=== PATIENT | female | born 1985 | race Caucasian/White ===

== ENCOUNTER 2022-01-19 16:09 | Outpatient (REF) | payer MEDICAID, SELFPAY ==
--- NOTE | 2022-01-19 14:30 | PAPFT_PTH ---
PATIENT: Domitila Glynn LOC: [facility] U#:[id number] AGE/SX: 36/F ROOM: RE01/19/[address]: Dorinda Ortega : 1985 BED: DIS: 01/19/2022 SPEC #: [id number] RECD: 01/20/22 09:25 STATUS: ARI CADENA #: [id number] CHRISSY: 01/19/22 14:[address]: Dorinda Ortega DEPT: [facility] Cytology RECD BY: Ally Armendariz Tissues: 1 - CX/ENDOCX FOR PAP SMEARS Procedures: PAP THIN PREP/[facility] Screening HPV DNA PROBE Comments: [id number] (CHLAMYDIA/GC)
[2022-01-19 21:27] LABS: ALT 32 U/L (14-59); AST 29 U/L (15-37); Albumin 4.2 g/dL (3.4-5.0); Alkaline Phosphatase 59 U/L (46-116); Anion Gap 8.1 mmol/L (3-11); BUN 11 mg/dL (7-18); Bilirubin, Total 0.6 mg/dL (0.2-1.0); CO2 27.9 mmol/L (21.0-32.0); CREATININE 0.8 mg/dL (0.55-1.02); Calcium 8.7 mg/dL (8.5-10.1); Calculated LDL 115 mg/dL (<100); Chloride 102 mmol/L (98-107); Cholesterol 214 mg/dL (<200); Glucose 99 mg/dL (74-106); HDL Cholesterol 90 mg/dL (40-60); Potassium 3.8 mmol/L (3.5-5.1); Sodium 138 mmol/L (136-145); TSH (W/Ref FT4) 1.35 uIU/mL (0.36-3.74); Total Protein 7.1 g/dL (6.4-8.2); Triglyceride 45 mg/dL (<150)
[2022-01-24 07:43] LABS: Chlamydia Result Negative (Negative); GC Result Negative (Negative)
== END 2022-01-19 16:10 | disposition home or self-care (01) ==
LOC: NCHCN 16:09
PROVIDERS: Visit Provider Nurse Practitioner Family
DX: Z13.220 Encounter for screening for lipoid disorders (principal); Z13.29 Encounter for screening for other suspected endocrine disorder; Z12.4 Encounter for screening for malignant neoplasm of cervix; Z11.3 Encounter for screening for infections with a predominantly sexual mode of transmission; Z13.228 Encounter for screening for other metabolic disorders; Z00.00 Encounter for general adult medical examination without abnormal findings
CPT/HCPCS: 80053; 80061; 87491; 87591; 88142; 84443; 87624

== ENCOUNTER 2024-02-21 22:01 | Outpatient (REF) | payer MEDICAID, SELFPAY ==
[2024-02-21 21:44] LABS: Absolute Basophil Count 0.07 10^3/uL (0.0-0.2); Absolute Lymphocyte Count 1.21 10^3/uL (1.2-3.4); Absolute Monocyte Count 0.39 10^3/uL (0.1-0.8); Basophils % 1.6 %; Eosinophils % 4.5 %; HCT 40.6 % (36.0-46.0); HGB 13.5 g/dL (11.2-15.7); Lymphocytes % 27.1 %; MCH 29.7 pg (27.0-33.0); MCHC 33.3 % (32.0-36.0); MCV 89 fL (80-95); MPV 11.2 fL (8.0-11.0); Monocytes % 8.7 %; Neutrophils % 58.1 %; Platelet Count 215 10^3/uL (130-400); RBC 4.54 10^6/uL (3.93-5.22); RDW 12.7 % (11.7-14.6); RDW-SD 41.9 fL; WBC 4.47 10^3/uL (4.4-10.8)
[2024-02-21 22:05] LABS: Iron 204 ug/dL (50-170); Total Iron Binding Capacity 294 ug/dL (250-450); Transferrin Sat 69 % (15-50)
[2024-02-21 22:16] LABS: ALT 27 U/L (14-59); AST 19 U/L (15-37); Albumin 3.9 g/dL (3.4-5.0); Alkaline Phosphatase 76 U/L (46-116); Anion Gap 5.2 mmol/L (3-11); BUN 4 mg/dL (7-18); Bilirubin, Total 0.59 mg/dL (0.2-1.0); CO2 27.8 mmol/L (21.0-32.0); CREATININE 0.8 mg/dL (0.55-1.02); Chloride 105 mmol/L (98-107); Estimated GFR 96.06 (mL/min/1.73m2); Ferritin 33 ng/mL (8-252); Glucose 97 mg/dL (74-106); Potassium 4.4 mmol/L (3.5-5.1); Sodium 138 mmol/L (136-145); TSH (W/Ref FT4) 1.28 uIU/mL (0.36-3.74)
== END 2024-02-21 22:02 | disposition home or self-care (01) ==
LOC: NCHCN 22:01
PROVIDERS: Visit Provider Family Medicine
DX: N92.0 Excessive and frequent menstruation with regular cycle (principal); E83.51 Hypocalcemia
CPT/HCPCS: 80053; 82728; 83540; 83550; 84443; 85025